=== PATIENT | male | born 1980 | race Caucasian/White ===

== ENCOUNTER 2020-12-24 23:23 | Emergency (ER) | payer BC, MEDICAID ==
[2020-12-25] MEDS ORDERED: Diphtheria,Pertussis(Acell),Tetanus Vaccine 0.5 ML Syringe IM ONE (00:23)
[2020-12-25] MEDS ORDERED: Acetaminophen/HYDROcodone 325-5 MG Tab PO ONE (01:13)
--- NOTE | 2020-12-25 01:15 | EDM.PDOC ---
ED HPI GENERAL MEDICAL PROBLEM - General Chief Complaint: Lower Extremity Injury/Pain Stated Complaint: HURT LEFT FOOT Time Seen by Provider: 12/25/20 00:10 Source of Information: Reports: Patient History Limitations: Reports: No Limitations - History of Present Illness INITIAL COMMENTS - FREE TEXT/NARRATIVE: Mateus is a 40-year-old male presenting to the ED for evaluation of left foot pain, swelling, and laceration due to an injury at [facility] today. Patient was loading up his boat after fishing with his sons and went to jump from his truck to the dock. He misjudged the distance and only caught the front third of the foot on the dock causing the foot to Hyperflex resulting in immediate pain, bruising, swelling, and bleeding. Patient sustained a laceration between the first and second toe on the left foot on the plantar surface. It appears that this is a deep puncture wound traveling into the soft tissue approximately 2 to 2-1/2 cm. The patient's last tetanus was in 2014 so we will booster this today. The foot is quite dirty with dried blood and soil. There is significant bruising and swelling on the dorsal aspect of the distal midfoot. Increased pain with flexion and extension of the digits of the left foot. The ankle is unremarkable. Left Feet Pain Score (Numeric/FACES): 6 - Related Data Allergies Allergy/AdvReac Type Severity Reaction Status Date / Time bee venom protein (honey bee) Allergy Swelling Verified 12/24/20 23:43 Sulfa (Sulfonamide Allergy Rash Verified 12/24/20 23:43 Antibiotics) Home Meds: Home Meds NK [No Known Home Meds] 12/24/20 [History] Past Medical History Gastrointestinal History: Reports: Hemorrhoids Musculoskeletal History: Reports: Fracture Other Musculoskeletal History: left leg fracture age 1 - Infectious Disease History Infectious Disease History: Reports: Chicken Pox - Past Surgical History HEENT Surgical History: Reports: Tonsillectomy Social & Family History - Tobacco Use Tobacco Use Status *Q: Never Tobacco User - Caffeine Use Caffeine Use: Reports: Coffee, Soda - Recreational Drug Use Recreational Drug Use: No Review of Systems - Review of Systems Review Of Systems: See Below Constitutional: Reports: No Symptoms Musculoskeletal: Reports: Foot Pain (Left foot pain and swelling on the distal half of the foot) Skin: Reports: Bruising (Bruising on the distal half of the dorsal left foot) Neurological: Reports: No Symptoms ED EXAM, GENERAL - Physical Exam Exam: See Below Exam Limited By: No Limitations General Appearance: Alert, Anxious, Mild Distress Peripheral Pulses: 2+: Posterior Tibial (L), Dorsalis Pedis (L) Extremities: Joint Swelling (Swelling of the distal half of the foot.), Limited Range of Motion (Limited flexion and extension of the toes on the left foot. There is significant swelling on the dorsal distal half of the metatarsals with increased pain with flexion of the foot.), Other (A 1.3 cm laceration between the first and second toe on the left foot) Neurological: Alert, Oriented, Normal Cognition, No Motor/Sensory Deficits Skin Exam: Warm, Dry, Ecchymosis (Significant bruising and ecchymosis on the distal dorsal half of the left foot.), Wound/Incision (The foot is quite soiled with a 1.3 cm laceration between the first and second toes on the left foot. There is significant dried blood on the plantar surface of the foot intermixed with dirt.) ED TRAUMA EXTREMITY PROCEDURES - Laceration/Wound Repair Left Distal Foot Lac/Wound Length In cm: 1.3 Appearance: Subcutaneous, Heavily Contaminated Distal NVT: Neuro & Vascular Intact Anesthetic Type: Local Local Anesthesia - Lidocaine (Xylocaine): 1% Plain Local Anesthetic Volume: 3cc Skin Prep: Other (Extensive soap and water) Exploration/Debridement/Repair: Wound Explored, In a Bloodless Field, Explored to Base Closed With: Sutures, Dermabond Suture Size: 4-0 # of Sutures: 2 Suture Type: Nylon, Interrupted Sterile Dressing Applied: Nurse Tetanus Status Addressed: Yes Complications: No Course - Vital Signs Last Recorded V/S: Last Vital Signs Temp 36.3 C 12/24/20 23:41 Pulse 92 12/24/20 23:41 Resp 16 12/24/20 23:41 BP 154/77 H 12/24/20 23:41 Pulse Ox 100 12/24/20 23:41 - Orders/Labs/Meds Orders: Active Orders 24 hr Category Date Time Status Vaccines to be Administered [RC] PER UNIT ROUTINE Care 12/25/20 00:23 Active Foot Comp Min 3V Lt [CR] Stat Exams 12/25/20 00:22 Taken Acetaminophen/HYDROcodone [Jolley 325-5 MG] Med 12/25/20 01:13 Once 1 tab PO ONETIME ONE Medication Orders Hydrocodone Bitart/Acetaminophen (Acetaminophen/Hydrocodone 325-5 Mg Tab) 1 tab PO ONETIME ONE Stop: 12/25/20 01:14 Meds: Medications Generic Name Dose Route Start Last Admin Trade Name Freq PRN Reason Stop Dose Admin Hydrocodone Bitart/Acetaminophen 1 tab 12/25/20 01:13 Acetaminophen/Hydrocodone 325-5 Mg Tab PO 12/25/20 01:14 ONETIME ONE Discontinued Medications Generic Name Dose Route Start Last Admin Trade Name Freq PRN Reason Stop Dose Admin Diphtheria/Tetanus/Acell Pertussis 0.5 ml 12/25/20 00:23 12/25/20 00:45 Diphtheria,Pertussis(Acell),Tetanus Vaccine 0.5 Ml Syringe IM 12/25/20 00:24 0.5 ml .ONCE ONE Administration Lidocaine HCl 5 ml 12/25/20 00:40 12/25/20 01:14 Lidocaine 1% 5 Ml Sdv INJECT 12/25/20 00:41 5 ml ONETIME ONE Administration - Re-Assessments/Exams Free Text/Narrative Re-Assessment/Exam: 12/25/20 01:21 the patient likely caused a significant sprain of the distal left foot causing ecchymosis, swelling, and pain. He also appears to have incurred a puncture wound between the first and second toes on the plantar section of the left foot measuring approximately 1.3 cm. This was washed out with soap and water, debrided with aggressive scrubbing and anesthetized using lidocaine 1%. The wound was closed using 4-0 Ethilon requiring 2 simple interrupted sutures. Because this was a heavily contaminated wound we will put the patient on ce phalexin 500 mg 3 times daily for 5 days. The wound was closed using Dermabond after the sutures brought the edges closer together because of the likelihood of further contamination given its location. Care of the wound was discussed and the patient was placed in a walking boot to prevent flexion or extension of the foot. He was not able to fully bear weight with this so we also put him on crut ches. He may advance weightbearing as tolerated but will likely need to be on crutches with nonweightbearing for 3 days and then partial weightbearing for an additional 3 days. Indications to return to the ED were discussed. The patient's tetanus was boosted. The patient may take ibuprofen for pain, use ice to reduce swelling, should elevate the foot to reduce swelling and rest the foot. Departure - Departure Time of Disposition: 01:10 Disposition: Home, Self-Care 01 Clinical Impression: Sprain of left foot Qualifiers: Encounter type: initial encounter Qualified Code(s): S93.602A - Unspecified sprain of left foot, initial encounter Laceration of left foot Qualifiers: Encounter type: initial encounter Qualified Code(s): S91.312A - Laceration without foreign body, left foot, initial encounter - Discharge Information Instructions: Foot Sprain, Laceration Care, Adult, [id number] Referrals: PCP,None [Primary Care Provider] - Forms: ED Department Discharge Care Plan Goals: Your work-up today has shown that you have suffered a significant sprain to your left foot. I encourage you to use the walking boot when up and ambulating for the next week or so. Initially we will have you on crutches nonweightbearing on the left foot for the next 2 to 3 days. You will probably still need to use the crutches for stability but you may start to put weight down on the left foot early next week. I would recommend ice, elevation, compression, rest, and ibuprofen to help reduce the swelling and pain. The sutures that were placed in your foot will need to be removed in 10 days. As we used Dermabond to seal the wound, you may get your foot wet at this point. Your sutures may be removed at your local clinic. Watch for any signs of infection, however, we are going to put you on antibiotic called cephalexin with 1 capsule 3 times a day for the next 5 days to try to prevent this as the wound was quite dirty when you came in. Sepsis Event Note (ED) - Evaluation Sepsis Screening Result: No Definite Risk - Focused Exam Vital Signs: Vital Signs Temp Pulse Resp BP Pulse Ox 12/24/20 23:41 36.3 C 92 16 154/77 H 100 - Problem List & Annotations (1) Laceration of left foot SNOMED Code(s): 014274009 Code(s): S91.312A - LACERATION WITHOUT FOREIGN BODY, LEFT FOOT, INIT ENCNTR Status: Acute Priority: Medium Current Visit: Yes Qualifiers: Encounter type: initial encounter Qualified Code(s): S91.312A - Laceration without foreign body, left foot, initial encounter (2) Sprain of left foot SNOMED Code(s): 48406818 Code(s): S93.602A - UNSPECIFIED SPRAIN OF LEFT FOOT, INITIAL ENCOUNTER Status: Acute Priority: Medium Current Visit: Yes Qualifiers: Encounter type: initial encounter Qualified Code(s): S93.602A - Unspecified sprain of left foot, initial encounter - Problem List Review Problem List Initiated/Reviewed/Updated: Yes - My Orders Last 24 Hours: My Active Orders 12/25/20 00:22 Foot Comp Min 3V Lt [CR] Stat 12/25/20 00:23 Vaccines to be Administered [RC] PER UNIT ROUTINE 12/25/20 01:13 Acetaminophen/HYDROcodone [Jolley 325-5 MG] 1 tab PO ONETIME ONE - Assessment/Plan Last 24 Hours: My Active Orders 12/25/20 00:22 Foot Comp Min 3V Lt [CR] Stat 12/25/20 00:23 Vaccines to be Administered [RC] PER UNIT ROUTINE 12/25/20 01:13 Acetaminophen/HYDROcodone [Jolley 325-5 MG] 1 tab PO ONETIME ONE
--- NOTE | 2020-12-28 09:13 | CR ---
Foot Comp Min 3V Lt CLINICAL HISTORY: Puncture wound FINDINGS: There is no acute fracture or dislocation within the foot. No destructive changes are present. There is moderate osteophytic change in the first MTP joint with bunion formation. There is soft tissue swelling in the forefoot. No foreign body seen IMPRESSION: No acute bony process.
== END 2020-12-25 01:25 | disposition home or self-care (01) ==
LOC: JP.ED 23:23
DX: S91.312A Laceration without foreign body, left foot, initial encounter (principal); Z91.030 Bee allergy status; Z88.2 Allergy status to sulfonamides; Z23 Encounter for immunization; W26.8XXA Contact with other sharp object(s), not elsewhere classified, initial encounter
CPT/HCPCS: 12001; 73630; 90471; 90715; 99283; A9270

== ENCOUNTER 2021-06-16 23:56 | Emergency (ER) | payer BC, MEDICAID ==
[2021-06-17] MEDS ORDERED: HYDROmorphone 1 MG/ML Syringe IM ONE (00:40)
--- NOTE | 2021-06-17 00:47 | EDM.PDOC ---
ED HPI GENERAL MEDICAL PROBLEM - General Chief Complaint: Lower Extremity Injury/Pain Stated Complaint: BACK PAIN Time Seen by Provider: 06/17/21 00:15 Source of Information: Reports: Patient, Family History Limitations: Reports: No Limitations - History of Present Illness INITIAL COMMENTS - FREE TEXT/NARRATIVE: 40-year-old male with right back and leg pain for the past 2 weeks. Over the past several days he has developed a neuropathy typical of sciatica, with burning through the buttock into the posterior leg and knee and down to the right foot. He is having difficulty walking due to pain, he has not developed weakness in his leg nor has he developed any incontinence of bowel or bladder. No rashes. He has no specific injury, however he did injure his left foot anastacia ier this summer, and had to alter his gait with a walking boot for several months putting extra pressure on his right side. He has been to the chiropractor several times but has not improved, in fact has gotten worse. The pain seems to originate in his right buttock and radiate down his leg especially posteriorly. He has not had any sleep in several nights. He has been taking regular doses of naproxen without relief. Onset: Gradual Duration: Week(s): (Worsening over the past 2 weeks) Location: Reports: Lower Extremity, Right Quality: Reports: Sharp, Stabbing, Other (Radiating down the leg) Improves with: Reports: None Worsens with: Reports: None (Position does not matter, it is intensely painful lying down or standing) Associated Symptoms: Reports: No Other Symptoms Right Leg Pain Score (Numeric/FACES): 8 - Related Data Allergies Allergy/AdvReac Type Severity Reaction Status Date / Time bee venom protein (honey bee) Allergy Swelling Verified 12/24/20 23:43 Sulfa (Sulfonamide Allergy Rash Verified 12/24/20 23:43 Antibiotics) Home Meds: Home Meds Naproxen [Naprosyn] 2 tab PO Q6H PRN 06/17/21 [History] Past Medical History Gastrointestinal History: Reports: Hemorrhoids Musculoskeletal History: Reports: Fracture Other Musculoskeletal History: left leg fracture age 1 - Infectious Disease History Infectious Disease History: Reports: Chicken Pox, Novel Coronavirus - Past Surgical History HEENT Surgical History: Reports: Tonsillectomy Social & Family History - Family History Family Medical History: No Pertinent Family History - Tobacco Use Tobacco Use Status *Q: Former Tobacco User Used Tobacco, but Quit: Yes Month/Year Tobacco Last Used: 12/2020 - Caffeine Use Caffeine Use: Reports: Coffee - Recreational Drug Use Recreational Drug Use: No Review of Systems - Review of Systems Review Of Systems: See Below Constitutional: Denies: Fever Respiratory: Reports: No Symptoms Cardiovascular: Reports: No Symptoms Genitourinary: Denies: Incontinence Musculoskeletal: Reports: Other (See HPI) Skin: Reports: No Symptoms. Denies: Rash Neurological: Denies: Paresthesia (Denies numbness of the lower extremities) Psychiatric: Reports: No Symptoms ED EXAM, GENERAL - Physical Exam Exam: See Below Exam Limited By: No Limitations General Appearance: Alert, Mild Distress (Patient is fairly uncomfortable, sitt ing in a chair leaning forward slightly and leaning to the left for comfort) Head: Atraumatic Neck: Supple, Non-Tender Respiratory/Chest: No Respiratory Distress, Lungs Clear Back Exam: Paraspinal Tenderness (Paraspinal tenderness is present in the lower back especially on the right. He has increased pain with rotation against resistance, somewhat worse to the left.) Extremities: Other (Straight leg raising is positive on the right leg with increased burning sensation down the leg with extension) Neurological: CN II-XII Intact, No Motor/Sensory Deficits (No weakness of the right lower extremity with dorsi or plantar flexion) Skin Exam: Warm, Dry Course - Vital Signs Last Recorded V/S: Last Vital Signs Temp 98.7 F 06/17/21 00:10 Pulse 92 06/17/21 00:10 Resp 18 06/17/21 00:10 BP 186/115 H 06/17/21 00:10 Pulse Ox 98 06/17/21 00:10 - Orders/Labs/Meds Meds: Medications Discontinued Medications Generic Name Dose Route Start Last Admin Trade Name Anthony PRN Reason Stop Dose Admin Hydromorphone HCl 2 mg 06/17/21 00:40 06/17/21 00:49 Hydromorphone 1 Mg/Ml Syringe IM 06/17/21 00:41 2 mg ONETIME ONE Administration - Re-Assessments/Exams Free Text/Narrative Re-Assessment/Exam: 06/17/21 00:46 2 mg of IM Dilaudid was given, and he will be discharged with 15 doses of Percocet for extra pain control as well as a Medrol Dosepak. This patient needs an evaluation at the clinic to be referred to physical therapy or possibly even an MRI. His is going to call the clinic tomorrow. Departure - Departure Time of Disposition: : Disposition: Home, Self-Care 01 Clinical Impression: Acute low back pain with sciatica Qualifiers: Back pain laterality: right Sciatica laterality: sciatica of right side Qualified Code(s): M54.41 - Lumbago with sciatica, right side - Discharge Information Instructions: Sciatica Referrals: PCP,None [Primary Care Provider] - Forms: ED Department Discharge Care Plan Goals: Continue with a regular dose of naproxen, and add Percocet as directed as needed. Increase activity slowly over the next couple of days and call the clinic for reevaluation by physical therapy or possibly even further evaluation with imaging such as an MRI. Sepsis Event Note (ED) - Evaluation Sepsis Screening Result: No Definite Risk - Focused Exam Vital Signs: Vital Signs Temp Pulse Resp BP Pulse Ox 06/17/21 00:10 98.7 F 92 18 186/115 H 98
== END 2021-06-17 01:02 | disposition home or self-care (01) ==
LOC: JP.ED 23:56
DX: M54.41 Lumbago with sciatica, right side (principal); Z88.2 Allergy status to sulfonamides; Z91.030 Bee allergy status; Z87.891 Personal history of nicotine dependence
CPT/HCPCS: 96372; 99283; J1170

== ENCOUNTER 2024-06-10 22:06 | Emergency (ER) | payer BC, MEDICAID ==
[2024-06-10] MEDS: Ketorolac 30 MG/ML SDV IM ONE (23:42)
[2024-06-10] MEDS: tiZANidine 2 MG Tab PO ONE (23:42)
== END 2024-06-11 00:19 | disposition home or self-care (01) ==
LOC: JP.ED 22:06
DX: M54.41 Lumbago with sciatica, right side (principal); E11.9 Type 2 diabetes mellitus without complications; Z86.16 Personal history of COVID-19; Z91.030 Bee allergy status; Z88.2 Allergy status to sulfonamides
CPT/HCPCS: 96372; 99283; A9270; J1885